=== PATIENT | male | born 1970 | race Hispanic/Latino ===

== ENCOUNTER 2022-01-21 12:43 | Inpatient (IN) | payer BC, OTHER ==
[~2022-01-21] VITALS: Ht 175.3 cm; Wt 124.3 kg
[~2022-01-21 12:43] MED LIST: FLECTOR1 EACH TD; LISINOPRIL10 MG PO; MELOXICAM7.5 MG PO; OMEPRAZOLE40 MG PO; PAROXETINE HCL20 MG PO; ROPIVACAINE 246.25 MG, EPINEPHRINE HCL 1:1000 1ML 0.5 MG, CLONIDINE HCL 0.08 MG, KETORO... INJ ONE
[2022-01-21] MEDS ORDERED: FENTANYL CITRATE/PF 100MCG/2 ML INJ ONE (13:01)
[2022-01-21] MEDS ORDERED: MIDAZOLAM HCL 2 MG/2 ML VIAL ONE (13:01)
[2022-01-21] MEDS ORDERED: TYLENOL EXTRA500 MG PO (13:20)
[2022-01-21] MEDS ORDERED: POVIDONE IODINE 0.05% 0.05 % ML PO ONE (13:41)
[2022-01-21] MEDS ORDERED: PROPOFOL IV EMULSION 10 MG/ML 20 ML VIAL ONE (13:41)
[2022-01-21] MEDS ORDERED: ONDANSETRON HCL INJ 2MG/ML 2ML 2 MG/ML VIAL ONE (13:41)
[2022-01-21] MEDS ORDERED: DEXAMETHASONE SOD PHOS INJ 4 MG/ML SDV ONE (13:41)
[2022-01-21] MEDS ORDERED: EPHEDRINE SULFATE INJ 50 MG/ML VIAL ONE (13:41)
[2022-01-21] MEDS ORDERED: LIDOCAINE HCL 2% LOCAL INJ 5 ML SDV VIAL INJ ONE (13:41)
[2022-01-21] MEDS ORDERED: SEVOFLURANE INHAL SOLN 250 ML PEN BTL ONE (13:41)
[2022-01-21] MEDS ORDERED: DEXAMETHASONE SOD PHOS 10 MG/1 ML VIAL ONE (13:48)
[2022-01-21] MEDS ORDERED: CELECOXIB 200 MG CAP ONE (13:48)
[2022-01-21] MEDS ORDERED: GABAPENTIN 300 MG CAP ONE (13:48)
[2022-01-21] MEDS ORDERED: Vancomycin IV 500 MG ONE (14:28)
[2022-01-21] MEDS ORDERED: SODIUM CHLORIDE 0.9% 500ML 500 ML ONE (14:28)
[2022-01-21] MEDS ORDERED: TRANEXAMIC ACID 20 ML ONE (14:28)
[2022-01-21] MEDS ORDERED: Vancomycin IV 1 GM VIAL ONE (16:27)
[2022-01-21] MEDS ORDERED: ACETAMINOPHEN 650 MG SUPP PR PRN (16:45)
[2022-01-21] MEDS ORDERED: DOCUSATE SODIUM 100 MG CAP PO PRN (16:45)
[2022-01-21] MEDS ORDERED: ZOLPIDEM TARTRATE 5 MG TAB PO PRN (16:45)
[2022-01-21] MEDS ORDERED: SODIUM CHLORIDE 0.9% 1000ML 1,000 ML IV SCH (16:45)
[2022-01-21] MEDS ORDERED: DIPHENHYDRAMINE HCL INJ 50 MG/ML VIAL IV PRN (16:45)
[2022-01-21] MEDS ORDERED: ONDANSETRON HCL INJ 2MG/ML 2ML 2 MG/ML VIAL IV PRN (16:45)
[2022-01-21] MEDS ORDERED: KETOROLAC TROMETHAMINE 30 MG/ML VIAL IV PRN (16:45)
[2022-01-21] MEDS ORDERED: HYDROMORPHONE 1MG/1ML INJ ONE ×2 (17:14→17:36)
[2022-01-21] MEDS ORDERED: ACETAMINOPHEN 1000 MG/100 ML IV PRN (18:00)
[2022-01-21 18:04] VITALS: BP 125/87
[2022-01-21 18:05] VITALS: BP 125/87
[2022-01-21 18:19] VITALS: BP 125/87
[2022-01-21] MEDS ORDERED: FISH OIL 1,0001 EAC2 PO (18:19)
[2022-01-21] MEDS: CELECOXIB 100 MG CAP PO SCH (19:00)
[2022-01-21] MEDS: ASPIRIN 325 MG TAB PO SCH (19:00)
[2022-01-21] MEDS: Vancomycin IV 1 GM in SODIUM CHLORIDE 0.9% 250ML 250 ML IV SCH (19:00)
[2022-01-21] MEDS: HYDROCODONE/APAP 5MG-325MG TAB PO PRN (19:17)
[2022-01-21 19:24] LABS: CREATININE, SERUM 1.16 mg/dL (0.72-1.25)
[2022-01-21 20:04] VITALS: BP 136/97
[2022-01-21 22:39] VITALS: BP 157/99
[2022-01-22] VITALS (9 sets, daily range): BP systolic 104–157; BP diastolic 70–99
[2022-01-22] MEDS: Vancomycin IV 1 GM in SODIUM CHLORIDE 0.9% 250ML 250 ML IV SCH (05:35)
[2022-01-22 06:07] LABS: HEMATOCRIT 46.2 % (38.2-49.6); HEMOGLOBIN 15.2 g/dL (14.0-18.0); LYMPHOCYTES # (AUTO) 0.7 (1.0-3.2); LYMPHOCYTES % 8.3 % (18.0-39.1); MEAN CORPUSCULAR HEMOGLOBIN 28.7 pg (28-32); MEAN CORPUSCULAR HGB CONC 32.9 g/dL (31-35); MEAN CORPUSCULAR VOLUME 87.2 fL (81-99); MONOCYTES # (AUTO) 0.5 (0.2-0.8); MONOCYTES % 5.4 % (4.4-11.3); NEUTROPHILS # (AUTO) 7.2 (2.1-6.9); NEUTROPHILS % 86.1 % (38.7-80.0); PLATELET COUNT 184 x10e3/uL (140-360); RED CELL DISTRIBUTION WIDTH 12.2 % (11.7-14.4)
[2022-01-22 06:39] LABS: ALBUMIN 3.2 g/dL (3.5-5.0); ALBUMIN/GLOBULIN RATIO 0.7 (0.8-2.0); ANION GAP 13.3 mmol/L (8-16); CREATININE, SERUM 0.93 mg/dL (0.72-1.25); POTASSIUM 4.3 mmol/L (3.5-5.1)
[2022-01-22] MEDS: LISINOPRIL 10 MG TAB PO SCH ×2 (08:45→16:03)
[2022-01-22] MEDS: ASPIRIN 325 MG TAB PO SCH ×2 (08:45→16:03)
[2022-01-22] MEDS: PAROXETINE HCL 20 MG TAB PO SCH (08:45)
[2022-01-22] MEDS: CELECOXIB 100 MG CAP PO SCH ×2 (08:45→16:03)
[2022-01-22] MEDS: HYDROCODONE/APAP 5MG-325MG TAB PO PRN (08:46)
[2022-01-22] MEDS: PANTOPRAZOLE SOD 40 MG TABEC PO SCH (08:46)
[2022-01-22] MEDS: HYDROCODONE/APAP 7.5MG-325MG 1 EA TAB PO PRN ×2 (12:50→22:07)
[2022-01-22] MEDS: CEFTRIAXONE 2 GM in SODIUM CHLORIDE 0.9% 100 ML IV SCH (15:00)
[2022-01-23] VITALS (7 sets, daily range): BP systolic 107–131; BP diastolic 67–84
[2022-01-23] MEDS ORDERED: FAMOTIDINE 20 MG/2 ML VIAL IV STA (00:14)
[2022-01-23] MEDS ORDERED: MAGNESIUM/ALUMINUM/SIMETHICONE 30 ML UDC PO ONE (00:15)
[2022-01-23] MEDS ORDERED: MAGNESIUM/ALUMINUM/SIMETHICONE 30 ML UDC PO PRN (00:15)
[2022-01-23 04:45] LABS: BASOPHILS % 0.4 % (0.0-1.0); EOSINOPHILS % 0.1 % (0.0-6.0); HEMATOCRIT 44.5 % (38.2-49.6); HEMOGLOBIN 14.4 g/dL (14.0-18.0); LYMPHOCYTES # (AUTO) 1.3 (1.0-3.2); MEAN CORPUSCULAR HEMOGLOBIN 28.5 pg (28-32); MEAN CORPUSCULAR HGB CONC 32.4 g/dL (31-35); MEAN CORPUSCULAR VOLUME 88.1 fL (81-99); MONOCYTES # (AUTO) 0.8 (0.2-0.8); MONOCYTES % 9.3 % (4.4-11.3); NEUTROPHILS # (AUTO) 6.3 (2.1-6.9); NEUTROPHILS % 74.7 % (38.7-80.0); PLATELET COUNT 193 x10e3/uL (140-360); RED BLOOD COUNT 5.05 x10e6/uL (4.3-5.7); RED CELL DISTRIBUTION WIDTH 12.5 % (11.7-14.4)
[2022-01-23 05:12] LABS: ALBUMIN 2.8 g/dL (3.5-5.0); ALBUMIN/GLOBULIN RATIO 0.6 (0.8-2.0); ANION GAP 14.2 mmol/L (8-16); CALCIUM 8.3 mg/dL (8.4-10.2); CREATININE, SERUM 0.82 mg/dL (0.72-1.25); POTASSIUM 4.2 mmol/L (3.5-5.1)
[2022-01-23] MEDS: HYDROCODONE/APAP 7.5MG-325MG 1 EA TAB PO PRN ×2 (09:25→13:25)
[2022-01-23] MEDS: ASPIRIN 325 MG TAB PO SCH ×2 (09:51→17:18)
[2022-01-23] MEDS: FAMOTIDINE 20 MG/2 ML VIAL IV SCH ×2 (09:51→17:18)
[2022-01-23] MEDS: LISINOPRIL 10 MG TAB PO SCH ×2 (09:52→17:18)
[2022-01-23] MEDS: PAROXETINE HCL 20 MG TAB PO SCH (09:52)
[2022-01-23] MEDS: CELECOXIB 100 MG CAP PO SCH (09:52)
[2022-01-23] MEDS: PANTOPRAZOLE SOD 40 MG TABEC PO SCH (09:52)
[2022-01-23] MEDS: CEFTRIAXONE 2 GM in SODIUM CHLORIDE 0.9% 100 ML IV SCH (13:35)
[2022-01-23] MEDS ORDERED: ONDANSETRON HCL 4 MG ORAL DISINTEGRATING TAB PO PRN (15:30)
[2022-01-23] MEDS: CELECOXIB 200 MG CAP PO SCH (17:18)
[2022-01-23] MEDS: HYDROCODONE/APAP 5MG-325MG TAB PO PRN (23:50)
[2022-01-24] VITALS: BP 95/70
[2022-01-24 01:03] VITALS: BP 95/70
[2022-01-24 06:30] VITALS: BP 119/80
[2022-01-24 07:52] VITALS: BP 111/80
[2022-01-24 08:43] VITALS: BP 111/80
[2022-01-24] MEDS: HYDROCODONE/APAP 7.5MG-325MG 1 EA TAB PO PRN ×2 (09:05→14:34)
[2022-01-24] MEDS: CELECOXIB 200 MG CAP PO SCH (09:47)
[2022-01-24] MEDS: PAROXETINE HCL 20 MG TAB PO SCH (09:47)
[2022-01-24] MEDS: ASPIRIN 325 MG TAB PO SCH (09:47)
[2022-01-24] MEDS: LISINOPRIL 10 MG TAB PO SCH (09:47)
[2022-01-24] MEDS: PANTOPRAZOLE SOD 40 MG TABEC PO SCH (09:48)
[2022-01-24 12:03] VITALS: BP 102/75
[2022-01-24] MEDS: HYDROCODONE/APAP 5MG-325MG TAB PO PRN (14:34)
[2022-01-24] MEDS ORDERED: FAMOTIDINE 20 MG TAB PO SCH (16:30)
== END 2022-01-24 15:32 | disposition home or self-care (01) | DRG 467 ==
LOC: OR 12:43 → MED/SURG 17:07
PROVIDERS: ADMIT Specialist; ATTEND Specialist
PROC: 0SRD0J9 Replacement of Left Knee Joint with Synthetic Substitute, Cemented, Open Approach (ICD-10-PCS; 2022-01-21)
PROC: 02HV33Z Insertion of Infusion Device into Superior Vena Cava, Percutaneous Approach (ICD-10-PCS; 2022-01-21)
PROC: 0SPD0JZ Removal of Synthetic Substitute from Left Knee Joint, Open Approach (ICD-10-PCS; principal; 2022-01-21 14:50)
DX: T84.54XA Infection and inflammatory reaction due to internal left knee prosthesis, initial encounter (principal); Z68.41 Body mass index [BMI] 40.0-44.9, adult; M87.9 Osteonecrosis, unspecified; I96 Gangrene, not elsewhere classified; M17.0 Bilateral primary osteoarthritis of knee; Z96.652 Presence of left artificial knee joint; I11.9 Hypertensive heart disease without heart failure; F32.A Depression, unspecified; E78.5 Hyperlipidemia, unspecified; E66.01 Morbid (severe) obesity due to excess calories; F41.9 Anxiety disorder, unspecified; F10.20 Alcohol dependence, uncomplicated; K76.0 Fatty (change of) liver, not elsewhere classified; E78.2 Mixed hyperlipidemia; R26.81 Unsteadiness on feet; K21.9 Gastro-esophageal reflux disease without esophagitis; Z20.822 Contact with and (suspected) exposure to COVID-19
CPT/HCPCS: 36415; 36569; 71045; 80053; 82565; 84520; 85025; 86850; 86900; 86920; 87071; 87075; 87205; 94799; 97139; C1713; C1776; J0171; J0690; J0696; J1100; J1170; J1885; J2001; J2250; J2405; J2795; J3010; J3370; J7030; J7040; J7050

== ENCOUNTER 2022-06-17 07:27 | Inpatient (IN) | payer OTHER ==
[~2022-06-17] VITALS: Ht 175.3 cm; Wt 117.0 kg
[~2022-06-17 07:27] MED LIST changes: +DAILY VALUE1 EACH PO; +FISH OIL 1,0001 EAC2 PO; -ROPIVACAINE 246.25 MG, EPINEPHRINE HCL 1:1000 1ML 0.5 MG, CLONIDINE HCL 0.08 MG, KETORO... INJ ONE; +TYLENOL EXTRA500 MG PO
[2022-06-17] MEDS ORDERED: ROPIVACAINE 246.25 MG, EPINEPHRINE HCL 1:1000 1ML 0.5 MG, CLONIDINE HCL 0.08 MG, KETORO... INJ ONE ×5 (07:30)
[2022-06-17] MEDS ORDERED: CELECOXIB 200 MG CAP ONE (07:58)
[2022-06-17] MEDS ORDERED: GABAPENTIN 300 MG CAP ONE (07:58)
[2022-06-17] MEDS ORDERED: DEXAMETHASONE SOD PHOS 10 MG/1 ML VIAL ONE (07:58)
[2022-06-17] MEDS ORDERED: SODIUM CHLORIDE 0.9% 500ML 500 ML ONE (08:56)
[2022-06-17] MEDS ORDERED: Vancomycin IV 1,000 MG ONE (08:56)
[2022-06-17] MEDS ORDERED: HYDROMORPHONE 1MG/1ML INJ ONE (10:01)
[2022-06-17] MEDS ORDERED: TRANEXAMIC ACID 10 ML ONE (10:59)
[2022-06-17] MEDS ORDERED: ACETAMINOPHEN 650 MG SUPP PR PRN (13:15)
[2022-06-17] MEDS ORDERED: ONDANSETRON HCL INJ 2MG/ML 2ML 2 MG/ML VIAL IV PRN (13:15)
[2022-06-17] MEDS ORDERED: DIPHENHYDRAMINE HCL INJ 50 MG/ML VIAL IV PRN (13:15)
[2022-06-17] MEDS ORDERED: DOCUSATE SODIUM 100 MG CAP PO PRN (13:15)
[2022-06-17] MEDS ORDERED: HYDROCODONE/APAP 7.5MG-325MG 1 EA TAB PO PRN (13:15)
[2022-06-17] MEDS ORDERED: FENTANYL CITRATE/PF 100MCG/2 ML INJ ONE (13:53)
[2022-06-17] MEDS ORDERED: LIDOCAINE HCL 2% LOCAL 20 ML VIAL ONE (13:55)
[2022-06-17] MEDS ORDERED: ROPIVACAINE 0.5% 5 MG/ML 30 ML SDV ONE (13:55)
[2022-06-17] MEDS ORDERED: LIDOCAINE HCL 2% LOCAL INJ 5 ML SDV VIAL INJ ONE (14:16)
[2022-06-17] MEDS ORDERED: SEVOFLURANE INHAL SOLN 250 ML PEN BTL ONE (14:16)
[2022-06-17] MEDS ORDERED: PROPOFOL IV EMULSION 10 MG/ML 20 ML VIAL ONE (14:16)
[2022-06-17] MEDS ORDERED: ONDANSETRON HCL INJ 2MG/ML 2ML 2 MG/ML VIAL ONE (14:16)
[2022-06-17] MEDS ORDERED: POVIDONE IODINE 0.05% 0.05 % ML PO ONE (14:16)
[2022-06-17] MEDS ORDERED: DEXAMETHASONE SOD PHOS INJ 4 MG/ML SDV ONE (14:16)
[2022-06-17] MEDS ORDERED: ALBUMIN 5% 0.05 GM/ML BTL IV ONE (16:45)
[2022-06-17] MEDS ORDERED: ALBUMIN 25% 12.5GM 50ML 50 ML IV ONE (16:55)
[2022-06-17 17:09] LABS: BASOPHILS % 0.2 % (0.0-1.0); HEMATOCRIT 40.5 % (38.2-49.6); LYMPHOCYTES # (AUTO) 0.5 (1.0-3.2); MEAN CORPUSCULAR HGB CONC 32.1 g/dL (31-35); MEAN CORPUSCULAR VOLUME 87.3 fL (81-99); MONOCYTES # (AUTO) 0.3 (0.2-0.8); MONOCYTES % 2.5 % (4.4-11.3); NEUTROPHILS # (AUTO) 12.3 (2.1-6.9); NEUTROPHILS % 92.7 % (38.7-80.0); PLATELET COUNT 133 x10e3/uL (140-360); RED BLOOD COUNT 4.64 x10e6/uL (4.3-5.7); RED CELL DISTRIBUTION WIDTH 13.5 % (11.7-14.4)
[2022-06-17] MEDS ORDERED: LEVOFLOXACIN 500MG/D5W 100ML 100 ML IV ONE (17:30)
[2022-06-17 17:40] LABS: ALBUMIN 3.3 g/dL (3.5-5.0); ALBUMIN/GLOBULIN RATIO 1.1 (0.8-2.0); ANION GAP 20.9 mmol/L (8-16); CALCIUM 8.8 mg/dL (8.4-10.2); CREATININE, SERUM 1.45 mg/dL (0.72-1.25); POTASSIUM 3.9 mmol/L (3.5-5.1)
[2022-06-17 18:00] VITALS: BP 102/68
[2022-06-17] MEDS ORDERED: SODIUM CHLORIDE 0.9% 1000ML 1,000 ML IV SCH (18:15)
[2022-06-17] MEDS ORDERED: Vancomycin IV 1 GM in SODIUM CHLORIDE 0.9% 250ML 250 ML IV ONE (18:15)
[2022-06-17] MEDS ORDERED: SODIUM CHLORIDE 0.9% 1000ML 1,000 ML IV ONE ×2 (18:15→20:30)
[2022-06-17] MEDS ORDERED: ALBUMIN 5% 250ML 250 ML IV ONE (18:15)
[2022-06-17] MEDS ORDERED: CELECOXIB 100 MG CAP PO SCH (18:30)
[2022-06-17 19:40] VITALS: BP 102/68
[2022-06-17 20:00] VITALS: BP 85/51
[2022-06-17] MEDS ORDERED: ZOLPIDEM TARTRATE 5 MG TAB PO PRN (21:00)
[2022-06-17] MEDS: Vancomycin IV 1 GM in SODIUM CHLORIDE 0.9% 250ML 250 ML IV SCH (21:10)
[2022-06-17] MEDS: ASPIRIN 325 MG TAB PO SCH (22:53)
[2022-06-18] VITALS (9 sets, daily range): BP systolic 98–123; BP diastolic 49–76
[2022-06-18] MEDS: SODIUM CHLORIDE 0.9% 1000ML 1,000 ML IV SCH ×4 (01:46→21:29)
[2022-06-18 05:07] LABS: BASOPHILS % 0.1 % (0.0-1.0); HEMATOCRIT 35.4 % (38.2-49.6); HEMOGLOBIN 11.5 g/dL (14.0-18.0); LYMPHOCYTES # (AUTO) 0.7 (1.0-3.2); LYMPHOCYTES % 7.4 % (18.0-39.1); MEAN CORPUSCULAR HGB CONC 32.5 g/dL (31-35); MEAN CORPUSCULAR VOLUME 86.1 fL (81-99); MONOCYTES # (AUTO) 0.5 (0.2-0.8); MONOCYTES % 5.6 % (4.4-11.3); NEUTROPHILS # (AUTO) 7.9 (2.1-6.9); NEUTROPHILS % 86.7 % (38.7-80.0); RED BLOOD COUNT 4.11 x10e6/uL (4.3-5.7); RED CELL DISTRIBUTION WIDTH 13.2 % (11.7-14.4)
[2022-06-18 05:12] LABS: PLATELET COUNT 99 x10e3/uL (140-360)
[2022-06-18 05:28] LABS: ALBUMIN 3.1 g/dL (3.5-5.0); ALBUMIN/GLOBULIN RATIO 1.1 (0.8-2.0); ANION GAP 12.1 mmol/L (8-16); CREATININE, SERUM 1.24 mg/dL (0.72-1.25); POTASSIUM 4.1 mmol/L (3.5-5.1)
[2022-06-18] MEDS ORDERED: LEVOFLOXACIN 500MG/D5W 100ML 100 ML IV SCH (06:45)
[2022-06-18 07:15] LABS: INR 1.15; PROTHROMBIN TIME 15.7 seconds (11.9-14.5)
[2022-06-18] MEDS: ASPIRIN 325 MG TAB PO SCH ×2 (09:09→16:06)
[2022-06-18] MEDS: Vancomycin IV 1 GM in SODIUM CHLORIDE 0.9% 250ML 250 ML IV SCH (09:12)
[2022-06-18] MEDS ORDERED: ASPIRIN81 MG PO (09:52)
[2022-06-18] MEDS ORDERED: SODIUM CHLORIDE 0.9% 1000ML 1,000 ML IV ONE ×4 (10:45→17:45)
[2022-06-18] MEDS ORDERED: ACETAMINOPHEN 1000 MG/100 ML IV PRN (13:15)
[2022-06-18] MEDS: HYDROCODONE/APAP 5MG-325MG TAB PO PRN (16:07)
[2022-06-19] VITALS: BP 101/60
[2022-06-19] MEDS: SODIUM CHLORIDE 0.9% 1000ML 1,000 ML IV SCH ×2 (03:24→10:15)
[2022-06-19 04:00] VITALS: BP 112/68
[2022-06-19 05:41] LABS: BASOPHILS % 0.2 % (0.0-1.0); EOSINOPHILS % 0.5 % (0.0-6.0); HEMATOCRIT 32.4 % (38.2-49.6); HEMOGLOBIN 10.2 g/dL (14.0-18.0); LYMPHOCYTES # (AUTO) 1.1 (1.0-3.2); MEAN CORPUSCULAR HEMOGLOBIN 27.7 pg (28-32); MEAN CORPUSCULAR HGB CONC 31.5 g/dL (31-35); MONOCYTES # (AUTO) 0.5 (0.2-0.8); MONOCYTES % 8.2 % (4.4-11.3); NEUTROPHILS # (AUTO) 4.2 (2.1-6.9); NEUTROPHILS % 72.8 % (38.7-80.0); PLATELET COUNT 96 x10e3/uL (140-360); RED BLOOD COUNT 3.68 x10e6/uL (4.3-5.7); RED CELL DISTRIBUTION WIDTH 13.5 % (11.7-14.4)
[2022-06-19 05:56] LABS: ALBUMIN 2.7 g/dL (3.5-5.0); ANION GAP 10.3 mmol/L (8-16); CALCIUM 8.1 mg/dL (8.4-10.2); CREATININE, SERUM 1.07 mg/dL (0.72-1.25); POTASSIUM 4.3 mmol/L (3.5-5.1)
[2022-06-19 08:20] VITALS: BP 106/65
[2022-06-19 08:52] VITALS: BP 106/65
[2022-06-19] MEDS: ASPIRIN 325 MG TAB PO SCH (09:10)
[2022-06-19] MEDS ORDERED: ONDANSETRON HCL 4 MG ORAL DISINTEGRATING TAB SL PRN (11:00)
[2022-06-19 11:41] VITALS: BP_SYST 110
[2022-06-19 15:37] VITALS: BP 106/62
[2022-06-19] MEDS: HYDROCODONE/APAP 5MG-325MG TAB PO PRN (15:59)
== END 2022-06-19 16:40 | disposition home or self-care (01) | DRG 466 ==
LOC: OR 07:27 → PACU V 13:07 → MED/SURG 17:46
PROVIDERS: ADMIT Specialist; ATTEND Specialist
PROC: 0SPD0JZ Removal of Synthetic Substitute from Left Knee Joint, Open Approach (ICD-10-PCS; 2022-06-17)
PROC: 3E03329 Introduction of Other Anti-infective into Peripheral Vein, Percutaneous Approach (ICD-10-PCS; 2022-06-17)
PROC: 3E033XZ Introduction of Vasopressor into Peripheral Vein, Percutaneous Approach (ICD-10-PCS; 2022-06-17)
PROC: 0SRD0J9 Replacement of Left Knee Joint with Synthetic Substitute, Cemented, Open Approach (ICD-10-PCS; principal; 2022-06-17 10:25)
DX: Z47.1 Aftercare following joint replacement surgery (principal); R65.21 Severe sepsis with septic shock; N17.9 Acute kidney failure, unspecified; D61.818 Other pancytopenia; T81.44XA Sepsis following a procedure, initial encounter; E87.20 Acidosis, unspecified; I11.9 Hypertensive heart disease without heart failure; F10.20 Alcohol dependence, uncomplicated; K70.9 Alcoholic liver disease, unspecified; E66.09 Other obesity due to excess calories; Z68.38 Body mass index [BMI] 38.0-38.9, adult; F41.9 Anxiety disorder, unspecified; K21.9 Gastro-esophageal reflux disease without esophagitis; M17.12 Unilateral primary osteoarthritis, left knee
CPT/HCPCS: 0223U; 36415; 71045; 80053; 83605; 85025; 85610; 86850; 86900; 86920; 87040; 87071; 87075; 87205; 94799; C1713; J0171; J0690; J1100; J1170; J1885; J1956; J2001; J2405; J2543; J2795; J3010; J3370; J7030; J7040; J7050; P9045